=== PATIENT | female | born 1950 | race Caucasian/White ===

== ENCOUNTER → 2017-12-18 | Outpatient (CLI) | payer MEDICARE, BC ==
--- NOTE | 2017-12-21 10:53 | RAD ---
Left foot, 2 views, 12/18/2017: History: Foot pain There is a small bony fragment with sclerotic margins along the lateral aspect of the first MTP joint compatible with old trauma. Mild degenerative changes are present at this joint. A small calcific density along the dorsal aspect of the anterior portion of the talus also appears old. No acute fracture or dislocation is evident. A moderate sized inferior calcaneal spur is present. There is mild subcutaneous edema along the inferior aspect of the heel. IMPRESSION: 1. Old posttraumatic and degenerative changes as described above. 2. Moderate sized inferior calcaneal spur.
== END | disposition home or self-care (01) ==
LOC: PMG 15:44
PROVIDERS: ATTEND Physician Assistant Medical
DX: M77.32 Calcaneal spur, left foot (principal); R60.0 Localized edema
CPT/HCPCS: 73620

== ENCOUNTER → 2020-11-28 | Outpatient (CLI) | payer MEDICARE, BC ==
--- NOTE | 2020-11-28 17:05 | RAD ---
EXAM: XR CHEST 2V INDICATION: Reason: COUGH SINCE COVID IN JULY / . Instructions: / History: . TECHNIQUE: PA and lateral views COMPARISON: 09/26/2016 chest x-ray FINDINGS: The heart size is normal. The great vessels appear unremarkable. There is no hilar or mediastinal mass. The lungs are clear. There is no pleural effusion or pneumothorax. There are no significant osseous abnormalities. Incidental ACDF surgical changes in the lower cervical spine are present. IMPRESSION: No active cardiopulmonary disease. Electronically signed by: Chucho Gomez MD (11/28/2020 5:02 PM) [id number]
== END ==
LOC: RAD 11:09
PROVIDERS: ATTEND Physician Assistant Medical
DX: R05 Cough (principal); Z86.16 Personal history of COVID-19
CPT/HCPCS: 71046